=== PATIENT | female | born 1955 | race Caucasian/White ===

== ENCOUNTER 2024-09-10 10:42 | Inpatient (IN) | payer MEDICAID ==
[2024-09-10] VITALS (12 sets, daily range): BP systolic 172–246; BP diastolic 66–116; PULSE 58–88; RESP 16–24; TEMP 36.44736–36.7; O2SAT 100
[~2024-09-10] VITALS: Ht 139.7 cm; Wt 40.4 kg
[2024-09-10] MEDS: SODIUM CHLORIDE 0.9% (SEPSIS BOLUS) IV ONE (11:12)
[2024-09-10] MEDS: VANCOMYCIN 1G PREMIX 200 ML IV ONE (11:24)
[2024-09-10 11:30] LABS: HEMATOCRIT. 42.5 % (36.0-48.0); HEMOGLOBIN. 13.9 g/dL (12.0-16.0); MEAN CORPUSCULAR HEMOGLOBIN 30.5 pg (28.0-32.0); MEAN CORPUSCULAR HGB CONC 32.7 g/dL (31.0-37.0); MEAN CORPUSCULAR VOLUME 93.1 fL (81.0-99.0); MEAN PLATELET VOLUME 9.7 fl (7.4-10.4); PLATELET 150 x1000/uL (130-400); RED BLOOD CELL COUNT 4.56 mill/uL (4.2-5.4); RED CELL DISTRIBUTION WIDTH 16.3 % (11.6-14.6); WHITE BLOOD COUNT 8.5 x1000/uL (4.5-11.0)
[2024-09-10 11:34] LABS: DIFFERENTIAL COMMENT 1
[2024-09-10 11:38] LABS: CHLORIDE 98 mEq/L (98-107); SODIUM 135 mEq/L (136-145)
[2024-09-10 11:39] LABS: CALCIUM 10.1 mg/dL (8.7-10.4); CARBON DIOXIDE 23 mEq/L (21-32)
[2024-09-10 11:44] LABS: GLUCOSE 185 mg/dL (70-105); UREA NITROGEN BLOOD 38 mg/dL (9-23)
[2024-09-10 11:45] LABS: LACTIC ACID 2.4 mmol/L (0.4-2.0)
[2024-09-10 11:46] LABS: ALANINE AMINOTRANSFERASE 10 IU/L (10-49); ALBUMIN 4.7 g/dL (3.2-4.8); ASPARTATE AMINOTRANSFERASE 21 IU/L (<34); BILIRUBIN DIRECT 0.2 mg/dL (<=3.0); BILIRUBIN TOTAL 0.5 mg/dL (0.1-1.0); PROTEIN TOTAL 9.1 g/dL (6.0-8.3)
[2024-09-10 11:54] LABS: ANISOCYTOSIS 1+; PLATELET ESTIMATE NORMAL
[2024-09-10 12:19] LABS: POTASSIUM 6.6 mEq/L (3.5-5.1); TROPONIN I HIGH SENSITIVITY 271 ng/L (3.0-34)
[2024-09-10 12:20] LABS: CREATININE 6.2 mg/dL (0.6-1.0)
[2024-09-10] MEDS ORDERED: FUROSEMIDE 100MG/10ML VIAL IV STA (12:20)
[2024-09-10 12:25] LABS: INR 1.1; PROTHROMBIN TIME 11.8 sec (9.6-11.0)
[2024-09-10] MEDS: ALBUTEROL (0.083%) 2.5MG/3ML NEB HHN ONE (12:46)
[2024-09-10] MEDS: SODIUM BICARBONATE 8.4% 50MEQ/50ML SYR IV ONE (12:57)
[2024-09-10] MEDS: CALCIUM CHLORIDE 1GM/10ML SYR IV ONE (12:57)
[2024-09-10] MEDS: DEXTROSE 50% WATER 50ML SYRINGE IV ONE (12:57)
[2024-09-10] MEDS: INSULIN REGULAR (HUMULIN R) 1000UNITS/10ML VIAL IV ONE (12:58)
[2024-09-10] MEDS: PIPERACILLIN/TAZO 3.375G/50ML 50 ML IV ONE (13:08)
[2024-09-10] MEDS: FUROSEMIDE 40MG/4ML VIAL IV NR (13:08)
[2024-09-10 14:27] LABS: CLARITY URINE CLEAR (CLEAR); COLOR URINE YELLOW (YELLOW); GLUCOSE URINE 1+ (NEGATIVE); KETONES URINE NEGATIVE (NEGATIVE); LEUKOCYTE ESTERASE URINE NEGATIVE (NEGATIVE); NITRITE URINE NEGATIVE (NEGATIVE); OCCULT BLOOD URINE NEGATIVE (NEGATIVE); PROTEIN URINE 4+ (NEGATIVE); SPECIFIC GRAVITY URINE 1.013 (1.005-1.030); UROBILINOGEN URINE 0.2 E.U./dL (0.2-1.0)
[2024-09-10 14:56] LABS: PHOSPHORUS 4.2 mg/dL (2.5-4.9)
[2024-09-10 15:02] LABS: BACTERIA URINE FEW; RBC URINE 0-2 /hpf (0-2); SQUAMOUS EPITHELIAL CELL URINE NONE SEEN /lpf (RARE/1+); WBC URINE 0-2 /hpf (0-2); YEAST URINE NONE SEEN
[2024-09-10 15:12] LABS: HEPATITIS B SURFACE ANTIGEN NEGATIVE (Negative)
[2024-09-10] MEDS ORDERED: MAGNESIUM/ALUMINUM HYDROXIDE/SIMETHICONE 30ML UDC PO PRN (15:30)
[2024-09-10] MEDS ORDERED: IPRATROPIUM/ALBUTEROL 0.5-3(2.5)MG/3ML NEB HHN PRN (15:30)
[2024-09-10] MEDS ORDERED: ACETAMINOPHEN 325MG TABLET PO PRN (15:30)
[2024-09-10] MEDS ORDERED: GUAIFENESIN 200MG/10ML SUGAR FREE UDC PO PRN (15:30)
[2024-09-10] MEDS ORDERED: DOCUSATE SODIUM 100MG CAPSULE PO PRN (15:30)
[2024-09-10] MEDS ORDERED: ONDANSETRON HCL 4MG/2ML INJ IV PRN (15:30)
[2024-09-10 15:32] LABS: HEPATITIS A AB IGM NEGATIVE (Negative)
[2024-09-10 15:33] LABS: HEPATITIS B CORE AB IGM NEGATIVE (Negative); HEPATITIS C AB NON REACTIVE (Neg) (Negative)
[2024-09-10] MEDS: HYDRALAZINE 20MG/ML VIAL IV NR (16:02)
[2024-09-10] MEDS ORDERED: ENOXAPARIN 30MG/0.3ML SYR SUBCUT SCH (17:00)
[2024-09-10] MEDS: HYDRALAZINE 20MG/ML VIAL IV PRN (17:19)
[2024-09-10] MEDS: BLOOD SUGAR DIAGNOSTIC STRIP TEST SCH (21:07)
[2024-09-10 21:11] LABS: *AMPHETAMINES SCREEN URINE NEGATIVE (NEGATIVE); *BARBITURATES SCREEN URINE NEGATIVE (NEGATIVE); *BENZODIAZEPINES SCREEN URINE NEGATIVE (NEGATIVE); *COCAINE SCREEN URINE NEGATIVE (NEGATIVE); CANNABINOID URINE SCREEN NEGATIVE (NEGATIVE); ECSTASY MDMA SCREEN URINE NEGATIVE (NEGATIVE); METHADONE URINE SCREEN NEGATIVE (NEGATIVE); OPIATES URINE SCREEN NEGATIVE (NEGATIVE); PHENCYCLIDINE URINE SCREEN NEGATIVE (NEGATIVE)
[2024-09-10 21:58] LABS: POTASSIUM 3.6 mEq/L (3.5-5.1)
[2024-09-10 22:18] LABS: CREATININE 4.1 mg/dL (0.6-1.0)
[2024-09-10 22:24] LABS: CREATINE KINASE 63 IU/L (34-145)
[2024-09-10 22:30] LABS: TROPONIN I HIGH SENSITIVITY 308 ng/L (3.0-34)
[2024-09-11] VITALS: BP 167/78; PULSE 79; RESP 19; TEMP 36.7; O2SAT 100
[2024-09-11 04:36] VITALS: BP_SYST 167; BP_SYST 174; BP_SYST 175; BP_DIAS 86; BP_DIAS 87; BP_DIAS 88; PULSE 78; RESP 19; TEMP 37.7; O2SAT 100
[2024-09-11 07:28] LABS: POTASSIUM 4.9 mEq/L (3.5-5.1)
[2024-09-11 07:29] LABS: CALCIUM 9.8 mg/dL (8.7-10.4)
[2024-09-11 07:34] LABS: CREATININE 4.8 mg/dL (0.6-1.0)
[2024-09-11 07:37] LABS: CREATINE KINASE 339 IU/L (34-145); T4 FREE 1.4 ng/dL (0.89-1.76); THYROID STIMULATING HORMONE 4.62 uIU/mL (0.55-4.78)
[2024-09-11 07:46] LABS: TROPONIN I HIGH SENSITIVITY 11303 ng/L (3.0-34)
[2024-09-11 08:00] VITALS: BP_SYST 151; BP_SYST 155; BP_DIAS 73; BP_DIAS 75; PULSE 78; RESP 18; TEMP 36.7; O2SAT 18
[2024-09-11 08:20] LABS: BASOPHILS % 2.2 % (0.0-2.0); EOSINOPHILS % 9.1 % (0.0-5.0); HEMATOCRIT. 36.1 % (36.0-48.0); LYMPHOCYTES % 13.2 % (20.0-50.0); MEAN CORPUSCULAR HEMOGLOBIN 30.5 pg (28.0-32.0); MEAN CORPUSCULAR HGB CONC 33.2 g/dL (31.0-37.0); MEAN CORPUSCULAR VOLUME 91.8 fL (81.0-99.0); MEAN PLATELET VOLUME 10.4 fl (7.4-10.4); MONOCYTES % 10.1 % (2.0-8.0); NEUTROPHILS % 65.4 % (40.0-76.0); PLATELET 131 x1000/uL (130-400); RED BLOOD CELL COUNT 3.93 mill/uL (4.2-5.4); RED CELL DISTRIBUTION WIDTH 15.5 % (11.6-14.6); WHITE BLOOD COUNT 6.6 x1000/uL (4.5-11.0)
[2024-09-11] MEDS: PANTOPRAZOLE SODIUM 40 MG/VIAL IV SCH (09:48)
[2024-09-11] MEDS: ENOXAPARIN 30MG/0.3ML SYR SUBCUT SCH (11:55)
[2024-09-11] MEDS: ASPIRIN 81MG EC TABLET PO SCH (11:55)
[2024-09-11 12:00] VITALS: BP 142/58; PULSE 81; RESP 18; TEMP 36.2; O2SAT 98
[2024-09-11] MEDS: NITROGLYCERIN OINT 1GM/INCH UDPKT TD SCH (12:01)
[2024-09-11] MEDS ORDERED: DEXTROSE 50% WATER 50ML SYRINGE IV PRN (13:45)
[2024-09-11 16:00] VITALS: BP 140/75; PULSE 76; RESP 18; TEMP 36.7; O2SAT 98
[2024-09-11 16:14] LABS: BASOPHILS % 1.8 % (0.0-2.0); EOSINOPHILS % 13.8 % (0.0-5.0); HEMATOCRIT. 34.7 % (36.0-48.0); HEMOGLOBIN. 11.4 g/dL (12.0-16.0); LYMPHOCYTES % 11.2 % (20.0-50.0); MEAN CORPUSCULAR HEMOGLOBIN 30.2 pg (28.0-32.0); MEAN CORPUSCULAR HGB CONC 32.8 g/dL (31.0-37.0); MEAN CORPUSCULAR VOLUME 92.2 fL (81.0-99.0); MEAN PLATELET VOLUME 9.9 fl (7.4-10.4); MONOCYTES % 8.7 % (2.0-8.0); NEUTROPHILS % 64.5 % (40.0-76.0); PLATELET 134 x1000/uL (130-400); RED BLOOD CELL COUNT 3.77 mill/uL (4.2-5.4); RED CELL DISTRIBUTION WIDTH 15.7 % (11.6-14.6); WHITE BLOOD COUNT 6.5 x1000/uL (4.5-11.0)
[2024-09-11 16:18] LABS: POTASSIUM 5.3 mEq/L (3.5-5.1)
[2024-09-11 16:20] LABS: CALCIUM 9.3 mg/dL (8.7-10.4)
[2024-09-11 16:27] LABS: CREATININE 5.1 mg/dL (0.6-1.0)
[2024-09-11] MEDS: INSULIN LISPRO 100 UNITS/ML SUBCUT SCH (17:50)
[2024-09-11 20:00] VITALS: BP 144/80; PULSE 79; RESP 18; TEMP 36.6; O2SAT 9
[2024-09-11] MEDS: AMLODIPINE 5MG TABLET PO SCH (21:14)
[2024-09-11] MEDS: ATORVASTATIN CALCIUM 10MG TABLET PO SCH (21:14)
[2024-09-12] VITALS (10 sets, daily range): BP systolic 150–196; BP diastolic 65–100; PULSE 74–83; RESP 16–20; TEMP 36.28068–37.2; O2SAT 97–100
[2024-09-12 12:44] LABS: POTASSIUM 3.5 mEq/L (3.5-5.1)
[2024-09-12 12:45] LABS: CALCIUM 9.3 mg/dL (8.7-10.4)
[2024-09-12 12:53] LABS: HEMATOCRIT. 37.7 % (36.0-48.0); HEMOGLOBIN. 12.2 g/dL (12.0-16.0); MEAN CORPUSCULAR HEMOGLOBIN 29.2 pg (28.0-32.0); MEAN CORPUSCULAR HGB CONC 32.5 g/dL (31.0-37.0); MEAN PLATELET VOLUME 9.5 fl (7.4-10.4); PLATELET 145 x1000/uL (130-400); RED BLOOD CELL COUNT 4.19 mill/uL (4.2-5.4); RED CELL DISTRIBUTION WIDTH 15.4 % (11.6-14.6)
[2024-09-12 13:04] LABS: DIFFERENTIAL COMMENT 1
[2024-09-12 13:12] LABS: CREATININE 3.3 mg/dL (0.6-1.0)
[2024-09-12 17:16] LABS: PLATELET ESTIMATE NORMAL
[2024-09-13] VITALS (7 sets, daily range): BP systolic 124–175; BP diastolic 63–90; PULSE 70–84; RESP 18–20; TEMP 36.2–36.7; O2SAT 95–100
[2024-09-13 07:02] LABS: POTASSIUM 4.6 mEq/L (3.5-5.1)
[2024-09-13 07:03] LABS: CALCIUM 9.5 mg/dL (8.7-10.4)
[2024-09-13 07:05] LABS: HEMATOCRIT. 38.4 % (36.0-48.0); HEMOGLOBIN. 12.7 g/dL (12.0-16.0); MEAN CORPUSCULAR HEMOGLOBIN 29.7 pg (28.0-32.0); MEAN CORPUSCULAR HGB CONC 33.1 g/dL (31.0-37.0); MEAN CORPUSCULAR VOLUME 89.7 fL (81.0-99.0); MEAN PLATELET VOLUME 9.3 fl (7.4-10.4); PLATELET 167 x1000/uL (130-400); RED BLOOD CELL COUNT 4.28 mill/uL (4.2-5.4); RED CELL DISTRIBUTION WIDTH 15.3 % (11.6-14.6); WHITE BLOOD COUNT 6.2 x1000/uL (4.5-11.0)
[2024-09-13 07:09] LABS: DIFFERENTIAL COMMENT 1
[2024-09-13 08:49] LABS: CREATININE 4.9 mg/dL (0.6-1.0)
[2024-09-13 13:48] LABS: PLATELET ESTIMATE NORMAL
[2024-09-13 13:49] LABS: ANISOCYTOSIS 1+
[2024-09-14] VITALS (15 sets, daily range): BP systolic 96–165; BP diastolic 50–81; PULSE 70–82; RESP 15–18; TEMP 36.1–36.6; O2SAT 93–99
[2024-09-14] MEDS: ACETAMINOPHEN 325MG TABLET PO PRN (01:41)
[2024-09-14 06:54] LABS: MEAN CORPUSCULAR HEMOGLOBIN 30.4 pg (28.0-32.0); MEAN CORPUSCULAR HGB CONC 33.3 g/dL (31.0-37.0); MEAN CORPUSCULAR VOLUME 91.3 fL (81.0-99.0); MEAN PLATELET VOLUME 8.7 fl (7.4-10.4); PLATELET 199 x1000/uL (130-400); RED BLOOD CELL COUNT 4.27 mill/uL (4.2-5.4); RED CELL DISTRIBUTION WIDTH 15.6 % (11.6-14.6); WHITE BLOOD COUNT 6.2 x1000/uL (4.5-11.0)
[2024-09-14 07:14] LABS: CALCIUM 9.5 mg/dL (8.7-10.4); POTASSIUM 5.2 mEq/L (3.5-5.1)
[2024-09-14 07:25] LABS: CREATININE 6.1 mg/dL (0.6-1.0)
[2024-09-14 07:27] LABS: DIFFERENTIAL COMMENT 1
[2024-09-14 09:27] LABS: TROPONIN I HIGH SENSITIVITY 9586 ng/L (3.0-34)
[2024-09-14 15:56] LABS: ANISOCYTOSIS 1+; PLATELET ESTIMATE NORMAL
[2024-09-15] VITALS: BP 149/64; PULSE 78; RESP 18; TEMP 36.6
[2024-09-15 04:00] VITALS: BP 183/85; PULSE 81; RESP 18; TEMP 36.3; O2SAT 96
[2024-09-15] MEDS: DEXTROSE 50% WATER 50ML SYRINGE IV PRN (06:25)
[2024-09-15 06:47] LABS: HEMATOCRIT. 37.3 % (36.0-48.0); HEMOGLOBIN. 12.7 g/dL (12.0-16.0); MEAN CORPUSCULAR HEMOGLOBIN 30.9 pg (28.0-32.0); MEAN CORPUSCULAR VOLUME 90.8 fL (81.0-99.0); MEAN PLATELET VOLUME 8.9 fl (7.4-10.4); PLATELET 189 x1000/uL (130-400); RED CELL DISTRIBUTION WIDTH 15.1 % (11.6-14.6); WHITE BLOOD COUNT 5.4 x1000/uL (4.5-11.0)
[2024-09-15 07:13] LABS: DIFFERENTIAL COMMENT 1
[2024-09-15 07:29] LABS: CALCIUM 9.6 mg/dL (8.7-10.4)
[2024-09-15 07:33] LABS: CREATININE 4.4 mg/dL (0.6-1.0)
[2024-09-15 08:00] VITALS: BP 150/78; PULSE 84; RESP 17; TEMP 36.4; O2SAT 97
[2024-09-15 12:00] VITALS: BP 110/54; PULSE 78; RESP 17; TEMP 36.2; O2SAT 98
[2024-09-15 13:58] LABS: PLATELET ESTIMATE NORMAL
[2024-09-15 16:20] VITALS: BP 135/63; PULSE 79; RESP 18; TEMP 35.9; O2SAT 98
[2024-09-15 16:26] VITALS: BP 135/63; PULSE 79; TEMP 97.6; O2SAT 98
== END 2024-09-15 16:32 | DRG 425 ==
LOC: ER 11:45 → EDBEDREQSVC 14:54 → EDBEDREQ 14:54 → 6WST 19:51
PROVIDERS: ADMIT Internal Medicine; ATTEND Internal Medicine
PROC: 5A1D70Z Performance of Urinary Filtration, Intermittent, Less than 6 Hours Per Day (ICD-10-PCS; principal; 2024-09-12)
PROC: 5A1D70Z Performance of Urinary Filtration, Intermittent, Less than 6 Hours Per Day (ICD-10-PCS; 2024-09-12)
PROC: 5A1D70Z Performance of Urinary Filtration, Intermittent, Less than 6 Hours Per Day (ICD-10-PCS; 2024-09-14)
DX: E87.5 Hyperkalemia (principal); J96.01 Acute respiratory failure with hypoxia; I21.4 Non-ST elevation (NSTEMI) myocardial infarction; G92.8 Other toxic encephalopathy; D72.10 Eosinophilia, unspecified; E87.20 Acidosis, unspecified; I13.2 Hypertensive heart and chronic kidney disease with heart failure and with stage 5 chronic kidney disease, or end stage renal disease; D63.1 Anemia in chronic kidney disease; N18.6 End stage renal disease; E87.1 Hypo-osmolality and hyponatremia; I42.9 Cardiomyopathy, unspecified; I16.1 Hypertensive emergency; I67.82 Cerebral ischemia; L03.115 Cellulitis of right lower limb; R94.31 Abnormal electrocardiogram [ECG] [EKG]; E78.5 Hyperlipidemia, unspecified; E11.22 Type 2 diabetes mellitus with diabetic chronic kidney disease; E11.65 Type 2 diabetes mellitus with hyperglycemia; I25.10 Atherosclerotic heart disease of native coronary artery without angina pectoris; R80.9 Proteinuria, unspecified; I35.0 Nonrheumatic aortic (valve) stenosis; I50.9 Heart failure, unspecified; K59.00 Constipation, unspecified; Z99.2 Dependence on renal dialysis; Z79.82 Long term (current) use of aspirin; I25.2 Old myocardial infarction; Z79.899 Other long term (current) drug therapy; Z91.158 Patient's noncompliance with renal dialysis for other reason
CPT/HCPCS: 36415; 71045; 80048; 80061; 80076; 80305; 81003; 82550; 82962; 83036; 83605; 83880; 84100; 84145; 84439; 84443; 84484; 85025; 86705; 86709; 87340; 90935; 92523; 92610; 93005; 93306; 93970; 94070; 94640; 94664; 97166; 98960; 99291; J0360; J1650; J1815; J1940; J2470; J2543; J3370; J3490; J7030

== ENCOUNTER 2024-09-15 17:05 | Inpatient (IN) | payer MEDICAID ==
[~2024-09-15] VITALS: Ht 139.7 cm; Wt 39.9 kg
[2024-09-15] MEDS ORDERED: DOCUSATE SODIUM 100MG CAPSULE PO PRN (18:30)
[2024-09-15] MEDS ORDERED: GUAIFENESIN 200MG/10ML SUGAR FREE UDC PO PRN (18:30)
[2024-09-15] MEDS ORDERED: ONDANSETRON HCL 4MG/2ML INJ IV PRN (18:30)
[2024-09-15] MEDS ORDERED: MAGNESIUM/ALUMINUM HYDROXIDE/SIMETHICONE 30ML UDC PO PRN (18:30)
[2024-09-15] MEDS ORDERED: IPRATROPIUM/ALBUTEROL 0.5-3(2.5)MG/3ML NEB HHN PRN (18:30)
[2024-09-15 18:34] VITALS: BP_SYST 130; BP_SYST 158; BP_DIAS 76; BP_DIAS 80; PULSE 88; PULSE 97; RESP 18; TEMP 36.4; TEMP 36.7
[2024-09-15] MEDS ORDERED: DEXTROSE 50% WATER 50ML SYRINGE IV PRN (18:45)
[2024-09-15] MEDS: AMLODIPINE 5MG TABLET PO SCH (20:56)
[2024-09-15] MEDS: ATORVASTATIN CALCIUM 10MG TABLET PO SCH (20:56)
[2024-09-15] MEDS: BLOOD SUGAR DIAGNOSTIC STRIP TEST SCH (20:56)
[2024-09-15] MEDS: INSULIN LISPRO 100 UNITS/ML SUBCUT SCH (21:00)
[2024-09-15 21:54] VITALS: BP 167/74; PULSE 81; RESP 19; TEMP 36.6; O2SAT 97
[2024-09-16] MEDS: NITROGLYCERIN OINT 1GM/INCH UDPKT TD SCH (01:03)
[2024-09-16] MEDS: CLONIDINE 0.1MG TABLET PO PRN (06:54)
[2024-09-16 08:00] VITALS: BP 158/76; PULSE 72; RESP 18; TEMP 36.3; O2SAT 97
[2024-09-16 09:37] LABS: HEMATOCRIT. 36.3 % (36.0-48.0); HEMOGLOBIN. 12.1 g/dL (12.0-16.0); MEAN CORPUSCULAR HEMOGLOBIN 30.6 pg (28.0-32.0); MEAN CORPUSCULAR HGB CONC 33.2 g/dL (31.0-37.0); MEAN CORPUSCULAR VOLUME 92.2 fL (81.0-99.0); MEAN PLATELET VOLUME 8.5 fl (7.4-10.4); PLATELET 181 x1000/uL (130-400); RED BLOOD CELL COUNT 3.94 mill/uL (4.2-5.4); RED CELL DISTRIBUTION WIDTH 15.4 % (11.6-14.6); WHITE BLOOD COUNT 5.3 x1000/uL (4.5-11.0)
[2024-09-16 09:43] LABS: CHLORIDE 97 mEq/L (98-107); POTASSIUM 5.7 mEq/L (3.5-5.1); SODIUM 132 mEq/L (136-145)
[2024-09-16 09:44] LABS: CALCIUM 9.3 mg/dL (8.7-10.4); CARBON DIOXIDE 23 mEq/L (21-32)
[2024-09-16 09:49] LABS: GLUCOSE 87 mg/dL (70-105); UREA NITROGEN BLOOD 36 mg/dL (9-23)
[2024-09-16 09:50] LABS: DIFFERENTIAL COMMENT 1
[2024-09-16 09:51] LABS: ALANINE AMINOTRANSFERASE 13 IU/L (10-49); ALBUMIN 3.2 g/dL (3.2-4.8); BILIRUBIN TOTAL 0.3 mg/dL (0.1-1.0); PREALBUMIN 6.8 mg/dl (10.0-40.0); PROTEIN TOTAL 6.7 g/dL (6.0-8.3)
[2024-09-16] MEDS: ASPIRIN 81MG TABLET PO SCH (10:01)
[2024-09-16] MEDS: ENOXAPARIN 30MG/0.3ML SYR SUBCUT SCH (10:03)
[2024-09-16] MEDS: PANTOPRAZOLE SODIUM 40 MG/VIAL IV SCH (10:03)
[2024-09-16 10:46] LABS: ASPARTATE AMINOTRANSFERASE 33 IU/L (<34)
[2024-09-16 17:16] LABS: PLATELET ESTIMATE NORMAL
[2024-09-16 20:00] VITALS: BP 160/80; PULSE 66; RESP 18; TEMP 36.2; O2SAT 97
[2024-09-16] MEDS ORDERED: INFLUENZA VACCINE 05/PF 0.5 ML SYRINGE IM ONE (21:00)
[2024-09-16] MEDS ORDERED: PNEUMOCOCCAL 20-VAL CONJ-DIP CRM 0.5ML IM ONE (21:00)
[2024-09-16] MEDS: SODIUM POLYSTYRENE SULFONATE 15 G/60 ML BOT PO NR (23:48)
[2024-09-17] VITALS (12 sets, daily range): BP systolic 91–161; BP diastolic 51–79; PULSE 60–74; RESP 14–18; TEMP 36.3–36.55848; O2SAT 97–100
[2024-09-17 07:03] LABS: CHLORIDE 96 mEq/L (98-107); HEMATOCRIT. 35.6 % (36.0-48.0); HEMOGLOBIN. 11.9 g/dL (12.0-16.0); MEAN CORPUSCULAR HEMOGLOBIN 29.7 pg (28.0-32.0); MEAN CORPUSCULAR HGB CONC 33.4 g/dL (31.0-37.0); MEAN PLATELET VOLUME 8.5 fl (7.4-10.4); PLATELET 189 x1000/uL (130-400); POTASSIUM 6.1 mEq/L (3.5-5.1); RED BLOOD CELL COUNT 3.99 mill/uL (4.2-5.4); RED CELL DISTRIBUTION WIDTH 15.2 % (11.6-14.6); SODIUM 129 mEq/L (136-145); WHITE BLOOD COUNT 5.9 x1000/uL (4.5-11.0)
[2024-09-17 07:04] LABS: CALCIUM 9.2 mg/dL (8.7-10.4); CARBON DIOXIDE 24 mEq/L (21-32)
[2024-09-17 07:08] LABS: IRON 106 ug/dL (50-170)
[2024-09-17 07:09] LABS: GLUCOSE 114 mg/dL (70-105); UREA NITROGEN BLOOD 52 mg/dL (9-23)
[2024-09-17 07:10] LABS: AMMONIA < 17 uMol/L (<32)
[2024-09-17 07:11] LABS: TOTAL IRON BINDING CAPACITY 181 ug/dl (250-425)
[2024-09-17 07:12] LABS: THYROID STIMULATING HORMONE 4.88 uIU/mL (0.55-4.78)
[2024-09-17 07:14] LABS: FERRITIN 999 ng/mL (10-291); FOLIC ACID (FOLATE) SERUM 6.82 ng/mL (>5.38)
[2024-09-17 07:15] LABS: VITAMIN B12 SERUM 1218 pg/mL (211-911)
[2024-09-17 07:22] LABS: DIFFERENTIAL COMMENT 1
[2024-09-17] MEDS ORDERED: INSULIN REGULAR (HUMULIN R) UD 100 UNITS/ML SYR IV STA (07:24)
[2024-09-17] MEDS: DEXTROSE 50% WATER 50ML SYRINGE IV NR (08:19)
[2024-09-17] MEDS: SODIUM BICARBONATE 8.4% 50MEQ/50ML SYR IV NR (08:19)
[2024-09-17] MEDS: INSULIN REGULAR (HUMULIN R) 1000UNITS/10ML VIAL IV NR (08:25)
[2024-09-17 09:21] LABS: HEPATITIS B SURFACE ANTIGEN NEGATIVE (Negative)
[2024-09-17 09:42] LABS: HEPATITIS A AB IGM NEGATIVE (Negative)
[2024-09-17 09:43] LABS: HEPATITIS B CORE AB IGM NEGATIVE (Negative); HEPATITIS C AB NON REACTIVE (Neg) (Negative)
[2024-09-17] MEDS: SODIUM ZIRCONIUM CYCLOSILICATE 10GM/PACKET PO NR (12:39)
[2024-09-17 15:33] LABS: POTASSIUM 4.1 mEq/L (3.5-5.1)
[2024-09-17 15:35] LABS: CALCIUM 9.4 mg/dL (8.7-10.4)
[2024-09-17 15:49] LABS: CREATININE 4.2 mg/dL (0.6-1.0)
[2024-09-17] MEDS ORDERED: LISI40TA13 (16:20)
[2024-09-17] MEDS ORDERED: HYDR100T11 (16:20)
[2024-09-17] MEDS ORDERED: NIFE90TA60 (16:20)
[2024-09-17] MEDS: LISINOPRIL 40MG TABLET PO SCH (16:31)
[2024-09-17] MEDS: NIFEDIPINE XL 60MG TAB PO SCH (16:31)
[2024-09-17] MEDS: ISOSORBIDE MONONITRATE 30MG TABLET SR 24HR PO SCH (16:32)
[2024-09-17 18:23] LABS: PLATELET ESTIMATE NORMAL
[2024-09-18 08:00] VITALS: BP 113/56; PULSE 69; RESP 18; TEMP 36.9; O2SAT 96
[2024-09-18] MEDS: FAMOTIDINE 20MG TABLET PO SCH (08:20)
[2024-09-18] MEDS ORDERED: ISOSORBIDE MONONITRATE 30MG TABLET SR 24HR PO SCH (09:00)
[2024-09-18 20:00] VITALS: BP 132/61; PULSE 72; RESP 18; TEMP 35.9; O2SAT 95
[2024-09-19] VITALS (13 sets, daily range): BP systolic 105–155; BP diastolic 52–69; PULSE 56–76; RESP 16–18; TEMP 36–36.55848; O2SAT 97–99
[2024-09-19 06:02] LABS: BASOPHILS % 2.5 % (0.0-2.0); EOSINOPHILS % 27.5 % (0.0-5.0); HEMATOCRIT. 33.4 % (36.0-48.0); LYMPHOCYTES % 19.3 % (20.0-50.0); MEAN CORPUSCULAR HEMOGLOBIN 29.6 pg (28.0-32.0); MEAN CORPUSCULAR HGB CONC 32.9 g/dL (31.0-37.0); MEAN CORPUSCULAR VOLUME 89.7 fL (81.0-99.0); MEAN PLATELET VOLUME 8.6 fl (7.4-10.4); MONOCYTES % 11.3 % (2.0-8.0); NEUTROPHILS % 39.4 % (40.0-76.0); PLATELET 196 x1000/uL (130-400); RED BLOOD CELL COUNT 3.72 mill/uL (4.2-5.4); RED CELL DISTRIBUTION WIDTH 15.1 % (11.6-14.6)
[2024-09-19 06:10] LABS: CHLORIDE 95 mEq/L (98-107); POTASSIUM 5.9 mEq/L (3.5-5.1); SODIUM 133 mEq/L (136-145)
[2024-09-19 06:11] LABS: CALCIUM 9.2 mg/dL (8.7-10.4); CARBON DIOXIDE 26 mEq/L (21-32); DIFFERENTIAL COMMENT 1
[2024-09-19 06:16] LABS: GLUCOSE 123 mg/dL (70-105); UREA NITROGEN BLOOD 48 mg/dL (9-23)
[2024-09-19 08:00] LABS: CREATININE 6.2 mg/dL (0.6-1.0)
[2024-09-19 08:03] LABS: TROPONIN I HIGH SENSITIVITY 771 ng/L (3.0-34)
[2024-09-19] MEDS: LISINOPRIL 10MG TABLET PO SCH (09:00)
[2024-09-19] MEDS: SODIUM BICARBONATE 8.4% 50MEQ/50ML SYR IV NR (09:06)
[2024-09-19] MEDS: SODIUM ZIRCONIUM CYCLOSILICATE 10GM/PACKET PO NR (09:06)
[2024-09-19] MEDS: DEXTROSE 50% WATER 50ML SYRINGE IV NR (09:06)
[2024-09-19] MEDS: INSULIN REGULAR (HUMULIN R) 1000UNITS/10ML VIAL IV NR (09:09)
[2024-09-19] MEDS: CARVEDILOL 3.125 MG TABLET PO SCH (09:12)
[2024-09-19] MEDS: ACETAMINOPHEN 325MG TABLET PO PRN (11:56)
[2024-09-19] MEDS: ERGOCALCIFEROL 50000UNITS CAPSULE PO SCH (17:26)
[2024-09-19 20:58] LABS: POTASSIUM 4.3 mEq/L (3.5-5.1)
[2024-09-19 20:59] LABS: CALCIUM 8.8 mg/dL (8.7-10.4)
[2024-09-19 21:21] LABS: CREATININE 3.5 mg/dL (0.6-1.0)
[2024-09-20 05:54] LABS: CALCIUM 9.4 mg/dL (8.7-10.4); POTASSIUM 4.7 mEq/L (3.5-5.1)
[2024-09-20 06:00] LABS: CREATININE 4.2 mg/dL (0.6-1.0)
[2024-09-20 06:22] LABS: HEMATOCRIT. 35.1 % (36.0-48.0); HEMOGLOBIN. 11.4 g/dL (12.0-16.0); MEAN CORPUSCULAR HEMOGLOBIN 29.3 pg (28.0-32.0); MEAN CORPUSCULAR HGB CONC 32.5 g/dL (31.0-37.0); MEAN CORPUSCULAR VOLUME 90.3 fL (81.0-99.0); MEAN PLATELET VOLUME 9.1 fl (7.4-10.4); PLATELET 189 x1000/uL (130-400); RED BLOOD CELL COUNT 3.88 mill/uL (4.2-5.4); RED CELL DISTRIBUTION WIDTH 14.9 % (11.6-14.6); WHITE BLOOD COUNT 5.4 x1000/uL (4.5-11.0)
[2024-09-20 06:57] LABS: DIFFERENTIAL COMMENT 1
[2024-09-20 08:00] VITALS: BP 159/72; PULSE 69; RESP 18; TEMP 36.1; O2SAT 96
[2024-09-20] MEDS: CARVEDILOL 3.125 MG TABLET PO SCH (08:43)
[2024-09-20 18:06] LABS: PLATELET ESTIMATE NORMAL
[2024-09-20 20:00] VITALS: BP 129/64; PULSE 64; RESP 18; TEMP 36.4; O2SAT 96
[2024-09-20] MEDS: ATORVASTATIN CALCIUM 10MG TABLET PO SCH (21:03)
[2024-09-21] VITALS (10 sets, daily range): BP systolic 103–181; BP diastolic 55–90; PULSE 57–87; RESP 16–20; TEMP 35.9–37.6; O2SAT 95–98
[2024-09-21] MEDS: DEXTROSE 50% WATER 50ML SYRINGE IV PRN (00:51)
[2024-09-21] MEDS: BLOOD SUGAR DIAGNOSTIC STRIP TEST SCH (04:14)
[2024-09-21 06:31] LABS: HEMATOCRIT. 36.2 % (36.0-48.0); MEAN CORPUSCULAR HGB CONC 33.2 g/dL (31.0-37.0); MEAN CORPUSCULAR VOLUME 90.2 fL (81.0-99.0); MEAN PLATELET VOLUME 8.8 fl (7.4-10.4); PLATELET 173 x1000/uL (130-400); RED BLOOD CELL COUNT 4.01 mill/uL (4.2-5.4); RED CELL DISTRIBUTION WIDTH 14.6 % (11.6-14.6); WHITE BLOOD COUNT 5.2 x1000/uL (4.5-11.0)
[2024-09-21 06:45] LABS: CALCIUM 9.5 mg/dL (8.7-10.4); POTASSIUM 5.6 mEq/L (3.5-5.1)
[2024-09-21 07:15] LABS: DIFFERENTIAL COMMENT 1
[2024-09-21 07:29] LABS: CREATININE 5.7 mg/dL (0.6-1.0)
[2024-09-21] MEDS: SODIUM ZIRCONIUM CYCLOSILICATE 10GM/PACKET PO NR (09:10)
[2024-09-21] MEDS ORDERED: HYDRALAZINE HCL 100MG TABLET PO SCH (12:00)
[2024-09-21] MEDS: HYDRALAZINE HCL 25MG TABLET PO SCH (12:30)
[2024-09-21] MEDS ORDERED: LOPERAMIDE HCL 2MG CAPSULE PO PRN (18:45)
[2024-09-21] MEDS ORDERED: IPRATROPIUM/ALBUTEROL 0.5-3(2.5)MG/3ML NEB HHN PRN (18:45)
[2024-09-21] MEDS: ISOSORBIDE MONONITRATE 30MG TABLET SR 24HR PO SCH (21:01)
[2024-09-21 21:14] LABS: CREATINE KINASE MB FRACTION 1.4 ng/mL (0.5-3.6)
[2024-09-22 00:30] VITALS: BP 159/73; PULSE 82; RESP 18; TEMP 38.1; O2SAT 94
[2024-09-22] MEDS: ACETAMINOPHEN 325MG TABLET PO PRN (00:53)
[2024-09-22 01:12] LABS: CREATINE KINASE MB FRACTION 0.9 ng/mL (0.5-3.6)
[2024-09-22 05:05] VITALS: BP 148/64; PULSE 73; RESP 17; TEMP 36.7; O2SAT 100
[2024-09-22 05:34] LABS: CHLORIDE 100 mEq/L (98-107); POTASSIUM 4.2 mEq/L (3.5-5.1); SODIUM 135 mEq/L (136-145)
[2024-09-22 05:35] LABS: CARBON DIOXIDE 26 mEq/L (21-32)
[2024-09-22 05:40] LABS: CREATININE 4.5 mg/dL (0.6-1.0)
[2024-09-22 05:41] LABS: CREATINE KINASE MB FRACTION < 0.5 ng/mL (0.5-3.6); GLUCOSE 80 mg/dL (70-105); UREA NITROGEN BLOOD 25 mg/dL (9-23)
[2024-09-22 05:42] LABS: CREATINE KINASE 29 IU/L (34-145)
[2024-09-22 06:14] LABS: HEMATOCRIT. 31.6 % (36.0-48.0); HEMOGLOBIN. 10.6 g/dL (12.0-16.0); MEAN CORPUSCULAR HEMOGLOBIN 30.4 pg (28.0-32.0); MEAN CORPUSCULAR HGB CONC 33.5 g/dL (31.0-37.0); MEAN CORPUSCULAR VOLUME 90.7 fL (81.0-99.0); MEAN PLATELET VOLUME 9.2 fl (7.4-10.4); PLATELET 142 x1000/uL (130-400); RED BLOOD CELL COUNT 3.49 mill/uL (4.2-5.4); RED CELL DISTRIBUTION WIDTH 15.1 % (11.6-14.6); WHITE BLOOD COUNT 10.4 x1000/uL (4.5-11.0)
[2024-09-22 06:50] LABS: TROPONIN I HIGH SENSITIVITY 222 ng/L (3.0-34)
[2024-09-22 06:52] LABS: DIFFERENTIAL COMMENT 1
[2024-09-22 08:00] VITALS: BP 146/65; PULSE 71; RESP 18; TEMP 36.3; O2SAT 98
[2024-09-22 08:49] VITALS: BP 146/65; PULSE 71; TEMP 97.4; O2SAT 98
[2024-09-22 09:45] VITALS: PULSE 71
[2024-09-22 11:10] LABS: PLATELET ESTIMATE NORMAL
[2024-09-22 15:38] LABS: PLATELET ESTIMATE NORMAL
== END 2024-09-22 09:15 | disposition short-term general hospital (02) | DRG 52 ==
LOC: MERGE 17:05 → 5EST 09-22 09:22
PROVIDERS: ADMIT Physical Medicine & Rehabilitation Spinal Cord Injury Medicine; ATTEND Internal Medicine
PROC: 5A1D70Z Performance of Urinary Filtration, Intermittent, Less than 6 Hours Per Day (ICD-10-PCS; 2024-09-17)
PROC: 5A1D70Z Performance of Urinary Filtration, Intermittent, Less than 6 Hours Per Day (ICD-10-PCS; principal; 2024-09-19)
PROC: 5A1D70Z Performance of Urinary Filtration, Intermittent, Less than 6 Hours Per Day (ICD-10-PCS; 2024-09-21)
PROC: 5A1D70Z Performance of Urinary Filtration, Intermittent, Less than 6 Hours Per Day (ICD-10-PCS; 2024-09-21)
DX: G92.8 Other toxic encephalopathy (principal); J96.01 Acute respiratory failure with hypoxia; D72.10 Eosinophilia, unspecified; E87.20 Acidosis, unspecified; I21.A1 Myocardial infarction type 2; I13.2 Hypertensive heart and chronic kidney disease with heart failure and with stage 5 chronic kidney disease, or end stage renal disease; E87.1 Hypo-osmolality and hyponatremia; N18.6 End stage renal disease; D63.1 Anemia in chronic kidney disease; I42.9 Cardiomyopathy, unspecified; E11.22 Type 2 diabetes mellitus with diabetic chronic kidney disease; E11.65 Type 2 diabetes mellitus with hyperglycemia; E87.5 Hyperkalemia; R26.9 Unspecified abnormalities of gait and mobility; R53.81 Other malaise; E55.9 Vitamin D deficiency, unspecified; I35.0 Nonrheumatic aortic (valve) stenosis; E78.5 Hyperlipidemia, unspecified; I50.20 Unspecified systolic (congestive) heart failure; I16.1 Hypertensive emergency; I67.82 Cerebral ischemia; R13.10 Dysphagia, unspecified; R91.1 Solitary pulmonary nodule; R80.9 Proteinuria, unspecified; R00.1 Bradycardia, unspecified; R07.89 Other chest pain; R94.6 Abnormal results of thyroid function studies; R10.13 Epigastric pain; Z99.2 Dependence on renal dialysis; Z91.81 History of falling; I25.2 Old myocardial infarction; Z79.82 Long term (current) use of aspirin
CPT/HCPCS: 36415; 80048; 80053; 82140; 82306; 82550; 82553; 82607; 82728; 82746; 82962; 83036; 83540; 83550; 83880; 84134; 84443; 84450; 84484; 85025; 86705; 86709; 87015; 87045; 87340; 87427; 87449; 90686; 90732; 90935; 92523; 92610; 93005; 97110; 97116; 97162; 97166; 97530; 97535; A4606; J1650; J1815; J2470; J3490